=== PATIENT | female | born 1975 | race Two or more races ===

== ENCOUNTER 2021-06-10 16:40 | Emergency (ER) | payer OTHER ==
[~2021-06-10] VITALS: Ht 167.6 cm; Wt 98.9 kg
[2021-06-10] MEDS ORDERED: LIPITOR20 MG (16:56)
[2021-06-10] MEDS ORDERED: ZESTRIL10 M1 (16:56)
[2021-06-10] MEDS ORDERED: BUTALB-ACETAMI1 EACH PO (19:41)
== END 2021-06-10 19:47 | disposition home or self-care (01) ==
LOC: ER 16:40
DX: G43.909 Migraine, unspecified, not intractable, without status migrainosus (principal)

== ENCOUNTER 2021-09-23 21:24 | Emergency (ER) | payer OTHER ==
[~2021-09-23] VITALS: Ht 165.1 cm; Wt 95.3 kg
[~2021-09-23 21:24] MED LIST: BUTALB-ACETAMI1 EACH PO; LIPITOR20 MG; ZESTRIL10 M1
[2021-09-24] MEDS ORDERED: ZITHROMAX500 MG PO (03:06)
[2021-09-24] MEDS ORDERED: ALBUTEROL1.25 MG/3 IH (03:06)
[2021-09-24] MEDS ORDERED: CODEINE-GUAIFE120 ML PO (03:06)
== END 2021-09-24 03:17 | disposition home or self-care (01) ==
LOC: ER 21:24
DX: J10.1 Influenza due to other identified influenza virus with other respiratory manifestations (principal); J32.9 Chronic sinusitis, unspecified